=== PATIENT | female | born 1970 | race Caucasian/White ===

== ENCOUNTER 2021-06-28 13:26 | Emergency (ER) | payer OTHER, SELFPAY ==
[2021-06-28] VITALS (12 sets, daily range): BP systolic 111–139; BP diastolic 68–91; PULSE 76–90; RESP 18–20; TEMP 36.8; O2SAT 98–100
--- NOTE | ~2021-06-28 | CT_ITS ---
EXAMINATION: CT abdomen pelvis w con DATE: 06/28/2021 15:39 INDICATION: Low abdominal pain. TECHNIQUE: Computed tomography (CT) of the abdomen and pelvis was performed with 100 mL Omnipaque 350 intravenous contrast. Automated exposure control and iterative reconstruction technique were employe d. The dose-length product was 1477.37 mGy-cm. COMPARISON: None. FINDINGS: The visualized portions of the lung bases demonstrate minimal atelectasis. No pleural effus ion. The heart size is normal. No pericardial effusion. There is a small sliding hiatal hernia. The l iver is normal. The gallbladder is distended. The spleen, pancreas, adrenal glands, and kidneys are n ormal. There are multiple fibroids in the uterus measuring up to 5.3 cm. There are no dilated loops o f bowel. There are changes of appendectomy. There are no pathologically enlarged lymph nodes. There i s no free intraperitoneal fluid. There is mild thoracic spondylosis and moderate lumbar spondylosis. There is mild chronic anterior wedging of T12 vertebral body. IMPRESSION: 1. Distended gallbladder, which may be secondary to fasting. Correlate with physical exam to exclude acute cholecystitis. 2. Uterine fibroids. 3. Small sliding hiatal hernia. Reviewed, dictated and finalized at location A. RANCE ADJUSTOR IMPRESSION: 1. Distended gallbladder, which may be secondary to fasting. Correlate with phy sical exam to exclude acute cholecystitis. 2. Uterine fibroids. 3. Small sliding hiatal hernia.
--- NOTE | ~2021-06-28 | US_ITS ---
EXAMINATION: US abdomen limited EXAM DATE: 06/28/2021 16:49 INDICATION: Abd pain, leukocytosis . TECHNIQUE: Multiple grayscale and Doppler images of the abdomen right upper quadrant were obtained (b y a technologist who performed the scan) and subsequently reviewed. There is no prior study for prosper lyman. FINDINGS: The pancreatic head and body are normal in appearance. The pancreatic tail is not visualized. The l iver has normal echogenicity and contour. There are no focal liver lesions identified. There is no evidence of intrahepatic biliary duct dilation. Portal venous flow was seen in the hepatopedal, nor mal direction and has normal Doppler waveform. No right-sided hydronephrosis. Common bile duct measures 4-5 mm, which is normal. The gallbladder wall is normal in thickness, with expected amount of distention. No sonographic evidence of pericholecystic fluid. There is no cholel ithiases. Technologist performing exam reports patient did not demonstrate sonographic Varghese's sign. Please note that this sign is less reliable in patients who have received pain medication. IMPRESSION: 1. Unremarkable abdominal ultrasound exam. Reviewed, dictated and finalized at location A. SORTER
[2021-06-28 15:07] LABS: Basophils Absolute Auto 0.1 K/mm3 (0.0-0.1); Basophils Percent Auto 0.3 % (0.2-1.2); Eosinophils Absolute Auto 0.1 K/mm3 (0-0.3); Eosinophils Percent Auto 0.4 % (0-4.4); Hematocrit 43.2 % (37.0-47.0); Hemoglobin 14.1 g/dL (12.0-15.0); Immature Granulocyte Absolute 0.09 K/mm3 (0.00-0.031); Immature Granulocyte Percent A 0.5 % (0-0.5); Lymphocytes Absolute Auto 2.49 K/mm3 (0.9-3.2); Lymphocytes Percent Auto 12.5 % (18.3-44.2); Mean Corpuscular HGB Conc 32.6 g/dl (32-36); Mean Corpuscular Volume 88.9 fl (80-100); Mean Platelet Volume 10.5 fl (7.4-10.4); Monocytes Absolute Auto 0.8 K/mm3 (0.1-0.6); Monocytes Percent Auto 4.1 % (2.6-8.5); Neutrophils Absolute Auto 16.4 K/mm3 (1.3-6.7); Neutrophils Percent Auto 82.2 % (45.5-73.1); Platelet Count Result 307 k/mm3 (150-375); Red Blood Count 4.86 M/mm3 (4.2-5.4); Red Cell Distribution Width 14.6 % (11.5-14.5); White Blood Count 19.9 K/mm3 (4.5-10.0)
--- NOTE | 2021-06-28 15:14 | ED.ABDPAIN ---
HPI - Abdominal Pain General Chief Complaint: Abdominal Pain Stated Complaint: abd pain Time Seen by Provider: 06/28/21 14:54 Source: patient Mode of arrival: ambulatory Limitations: no limitations History of Present Illness HPI narrative: This is a 50 year old female that presents to the ER for abdominal pain present x 3 days. Reports a sharp, intermittent pain in the right side of the abdomen, worsening today which prompted her to be seen. Denies fever, vomiting, dysuria, hematuria, or diarrhea. Related Data Allergies Allergy/AdvReac Type Severity Reaction Status Date / Time No Known Allergies Allergy Verified 06/28/21 14:59 Review of Systems Review of Systems: CONSTITUTIONAL: Denies fever GASTROINTESTINAL: Reports abdominal pain. Denies nausea, vomiting, or diarrhea. GENITOURINARY: Denies dysuria or hematuria. All systems reviewed & are unremarkable except as noted in HPI and below PMFSH Past Medical History Medical History (Updated 06/28/21 @ 17:57 by Rosibel Bearden PA-C) No active medical problems Social History Social History (Updated 06/28/21 @ 15:16 by Rosibel Bearden PA-C) Smoking status: Never smoker Exam Narrative: GENERAL: Well-appearing, well-nourished, and in no acute distress. HEAD: Normocephalic, atraumatic. EYES: EOMI. CHEST: Clear to auscultation. No respiratory distress. No wheezes rales or rhonchi HEART: Regular rate and rhythm. No murmur heard. Normal peripheral pulses. ABDOMEN: Soft, nondistended, normal active bowel sounds. Tender to palpation throughout the right side of the abdomen, without guarding. No CVA tenderness EXTREMITIES: Normal range of motion. No edema. SKIN: Warm, dry, no rash. NEURO: No focal deficits. Alert and oriented x3. PSYCH: Normal mood and affect Course Consultations Consultation #1: Spoke with Dr. Green about patient and workup who feels comfortable with outpatient follow-up for possible findings of cholecystitis Date: 06/28/21 Time: 17:30 Vital Signs Vital signs: Vital Signs Temperature 98.3 F 06/28/21 13:37 Pulse Rate 90 06/28/21 13:37 Respiratory Rate 18 06/28/21 13:37 Blood Pressure 139/91 H 06/28/21 13:37 Pulse Oximetry 100 06/28/21 13:37 Temperature 98.3 F 06/28/21 13:37 Pulse Rate 76 06/28/21 17:49 Respiratory Rate 20 06/28/21 17:49 Blood Pressure 122/68 06/28/21 17:49 Pulse Oximetry 99 06/28/21 17:49 MDM - Abdominal Pain MDM Narrative Medical decision making narrative: Patient presents to the emergency department for right-sided abdominal pain present over the last couple of days. She is afebrile and nontoxic-appearing. Vitals are stable. CBC does show leukocytosis to 19.9. Metabolic panel without concerning findings. Lipase is normal. Lactic acid is not elevated. Bedside test is negative. UA with evidence of infection, this will be sent for culture. CT scan of the abdomen and pelvis shows distended gallbladder, may be secondary to fasting. Correlate with physical exam to exclude acute cholecystitis. Uterine fibroids. Small sliding hiatal hernia. Abdominal ultrasound is unremarkable. Patient was updated on case findings. Able to tolerate oral intake in the ED. Reports improvement in her pain. Given first dose of antibiotics IV in the ED. Spoke with Dr. Green about patient and workup who feels comfortable with outpatient follow-up for possible findings of cholecystitis. Patient will be placed on oral antibiotics for urinary tract infection. She feels comfortable with further outpatient follow-up. She was given warnings to return to the ER Lab Data Attestation: I reviewed the patient's lab results. Result diagrams: 06/28/21 15:01 06/28/21 15:01 Labs: Lab Results 06/28/21 06/28/21 06/28/21 Range/Units 15:01 15:01 15:01 WBC 19.9 H (4.5-10.0) K/mm3 RBC 4.86 (4.2-5.4) M/mm3 Hgb 14.1 (12.0-15.0) g/dL Hct 43.2 (37.0-47.0) % MCV 88.9
[2021-06-28 15:15] LABS: Add Urine Microscopic? YES; Appearance Urine Clear (Clear); Bacteria Urine Trace /hpf; Bilirubin Urine Negative (Negative); Blood Urine 1+ (Negative); Color Urine Yellow (Yellow); Glucose Urine UA Negative (Negative); Ketones Urine Negative (Negative); Leukocyte Esterase Ur 3+ LEU/UL (Negative); Nitrate Urine Positive (Negative); Protein Urine Negative (Negative); RBC Urine 0-2 /hpf (0-2); Specific Grav Ur 1.006 (1.001-1.035); Squamous Epithelial Cell Urine Rare /hpf (Few); Urobilinogen Urine Negative mg/dL (<2.0); WBC Urine 31-50 /hpf
[2021-06-28 15:23] LABS: Alanine Aminotransferase 13 U/L (4-35); Albumin Level 4.3 g/dL (3.5-5.1); Alkaline Phosphatase 151 U/L (38-126); Anion Gap 10 mmol/L (8-16); Aspartate Amino Transferase 17 U/L (14-36); Bilirubin,Total 0.5 mg/dL (0.2-1.3); Blood Urea Nitrogen 4 mg/dL (7-17); Calcium 9.4 mg/dL (8.4-10.2); Carbon Dioxide 25 mmol/L (22-30); Chloride 99 mmol/L (98-107); Estimated CRCL calculation 112 ml/min; Estimated Glomerular Filt Rate > 60; Glucose 100 mg/dL (65-110); Lipase 32 U/L (23-300); Potassium 3.6 mmol/L (3.4-5.0); Sodium 134 mmol/L (137-145)
[2021-06-28] MEDS: ONDANSETRON INJ 4 MG/2 ML VIAL IV PUSH (16:13)
[2021-06-28] MEDS: MORPHINE SULFATE (*CRX) 4 MG/ML INJ IV PUSH (16:13)
[2021-06-28 16:22] LABS: Lactic Acid Reflex 1.5 mmol/L (0.7-2.1)
[2021-06-28 16:25] LABS: CRP 2.4 mg/dL (<1.0)
== END 2021-06-28 18:14 | disposition home or self-care (01) ==
PROVIDERS: Physician Assistant; Emergency Provider Emergency Medicine
DX: K81.9 Cholecystitis, unspecified (principal); N12 Tubulo-interstitial nephritis, not specified as acute or chronic; D25.9 Leiomyoma of uterus, unspecified; K44.9 Diaphragmatic hernia without obstruction or gangrene
CPT/HCPCS: 36415; 74177; 76705; 80053; 81001; 81025; 83605; 83690; 85025; 86140; 87040; 87086; 96365; 96375; 99284; J0696; J2270; J2405; Q9967